=== PATIENT | male | born 1945 | race Caucasian/White ===

== ENCOUNTER → 2023-12-04 11:57 | Outpatient (REF) | payer BC, SELFPAY | LOC: HWRAD 11:57 | PROVIDERS: ATTENDING PHYSICIAN Physician Assistant Medical | DX: R29.890 Loss of height (principal); Z13.820 Encounter for screening for osteoporosis | CPT/HCPCS: 77080 ==

== ENCOUNTER → 2024-02-04 06:29 | Day surgery (SDC) | payer BC, SELFPAY | LOC: GI 06:29 | PROVIDERS: ATTENDING PHYSICIAN Internal Medicine | DX: Z12.11 Encounter for screening for malignant neoplasm of colon (principal); D12.5 Benign neoplasm of sigmoid colon; K57.30 Diverticulosis of large intestine without perforation or abscess without bleeding; K64.8 Other hemorrhoids; K64.4 Residual hemorrhoidal skin tags | CPT/HCPCS: 45385; 88305 ==

== ENCOUNTER → 2024-10-07 17:35 | Outpatient (REF) | payer BC, SELFPAY | LOC: MRI 17:35 | PROVIDERS: ATTENDING PHYSICIAN Ophthalmology; FAMILY PHYSICIAN Physician Assistant Medical | DX: H47.293 Other optic atrophy, bilateral (principal) | CPT/HCPCS: 70553; A9575 ==

== ENCOUNTER 2024-12-04 12:51 | Emergency (ER) | payer BC, SELFPAY ==
[2024-12-04 12:58] VITALS: BP 160/72
[2024-12-04 14:21] VITALS: BP 145/63
--- NOTE | 2024-12-04 14:36 | ED.GENMED ---
History of Present Illness
General
Chief Complaint: Cardiac Symptoms
Source: patient
Exam Limitations: none
Time Seen by Provider: 12/04/24 14:17
Nursing documentation reviewed up to this point in time: agreed with
History of Present Illness
History of Present Illness:
The patient is a pleasant 79-year-old man with a past medical history of bradycardia who reports that he just did not feel well yesterday morning. Patient reports that the same thing happened again, at the same time during the morning. He
describes just not feeling right, as if ' something is not working'. He reports that his breathing feels ' more noticeable' but he is not necessarily short of breath. He denies chest pain. He denies fever and headache. He denies any recent
illnesses such as nausea, vomiting and diarrhea. Patient reports he feels better at this time. Patient reports the only symptom he has been having specifically is pain in his right foot which she attributes to gout, which he reports is
significantly better since taking indomethacin both yesterday morning and this morning as well as Tylenol.
Past History
Past History
ED Past Medical History: Other (rbbb, djd of back, bradycardia)
ED Past Surgical History: Other
Social History
Tobacco: Former smoker
Alcohol: Other
Drug: None
Personal:
Living: with family
Employment: Other
Family History
Family History: Other
Review of Systems
Review of Systems
Allergies reviewed?: Yes
All Other Systems: ROS reviewed and negative except as documented in HPI and ROS
Constitutional: Reports no symptoms
EENT: Reports no symptoms
Respiratory: Reports no symptoms
Cardiac: Reports no symptoms
ABD/GI: Reports no symptoms
: Reports no symptoms
Musculoskeletal: Reports no symptoms
Skin: Reports no symptoms
Neurological: Reports no symptoms
Endocrine: Reports no symptoms
Hematologic/Lymphatic: Reports no symptoms
Psychiatric: Reports no symptoms
Phy Exam
Physical Exam
Physical Exam:
Physical Exam
General: no apparent distress, not acutely ill. Well and comfortable appearing
Neck: supple. no meningeal signs. normal psoterior pharynx
Heart: Bradycardic
Lungs: no acute respiratory distress. clear bilaterally
Abdomen: normal bowel sounds. not tender. no CVAT
Neuro: alert and oriented. no focal neurological deficits
Skin: no rash
Psychiatric: well kept. interactive and cooperative
Extremities: no edema. no calf tenderness. negative homans. good distal pulses. Right foot is not erythematous, nor is there any crepitus or obvious swelling.
Course
Orders/Labs/Results
Orders:
Orders
12/04/24 12:52
EKG [Electrocardiogram (*1)] Urgent
Reason for Study: Chest Pain
EKG- Treatment ONCE
12/04/24 14:30
Complete Blood Count/With Diff Urgent
Comprehensive Metabolic Panel Urgent
Prothrombin Time Urgent
Troponin I Urgent
12/04/24 14:48
Electrocardiogram (*1) Urgent
Reason for Study: Shortness of Breath
EKG- Treatment ONCE
Abnormal Lab Results
12/04/24
14:30
RBC 4.12 L 10^6/uL
(4.70-6.10)
Hct 38.2 L %
(39.0-52.0)
MCH 32.3 H pg
(27.0-31.0)
Lymphocytes % 16.7 L %
(20.5-51.1)
Glucose 104 H mg/dl
(70-99)
12/04/24 14:30
12/04/24 14:30
Vital Signs
Initial and Last Documented VS:
Initial Vital Signs
Temp Pulse Resp BP Pulse Ox
98.2 F 51 16 160/72 100
12/04/24 12:58 12/04/24 12:58 12/04/24 12:58 12/04/24 12:58 12/04/24 12:58
Last Documented Vital Signs
Temp Pulse Resp BP Pulse Ox
98.2 F 52 15 130/61 98
12/04/24 12:58 12/04/24 15:45 12/04/24 15:45 12/04/24 15:00 12/04/24 15:00
MDM/Problems Addressed
Differential Diagnosis Includes:
Symptomatic bradycardia, acute coronary syndrome, cardiac arrhythmia
MDM/Problems Addressed:
Patient presents with feelings of acutely not feeling well
Acute Exacerbation and/or Progression of Chronic Illness:
Patient may have acute exacerbation and worsening of his bradycardia
*Pulse Oximetry
Patient hypoxic: no
*EKG
Interpreted by ED Provider?: Yes
Interpretation: abnormal
Comparison EKG: changes noted
Rate: bradycardiac
Rhythm: sinus
[place]: normal axis
Interval: first degree heart block
QRS Pattern: right bundle branch block
Ischemia: non-specific ST changes
*Public Policy Mediator Interpretation
Rate: bradycardiac
Interpretation: normal
Rhythm: sinus and PAC's
*Critical Care Note
Total Time (30-74mins, 75-104mins- exclusive of procedures): Not Applicable
Data Reviewed
Review of Other/Old Records Reveals: Testing (Cardiac echo in 2016 showed no significant abnormalities)
Patient Management
Social determinants of health affecting care: Living situation and Strong social support
Discussion with other providers: Other (Case discussed with Dr. Isaac Cornelius who reviewed patient's monitor strip and EKG. He assured me that patient will be evaluated in the cardiology office tomorrow for possible symptomatic bradycardia and
irregular heartbeat)
Escalation/DeEscalation of care consider admission/obs:
Patient states he feels well, as if he is at his full baseline. He denies any lightheadedness, chest pain or shortness of breath. He understands that he has bradycardia and possible short pauses, can be causing his symptoms and he should return
immediately with any dizziness or episodes of passing out. Patient understands he must follow-up with cardiology tomorrow in the office
ED Attending Note
-
Portions of this chart may have been created with voice recognition software.� Occasional wrong word or��sound alike� substitutions may have occurred due to the inherent limitations of voice recognition software.
Discharge Plan
Departure
Patient Disposition: Home (Routine Discharge)
Date of Disposition: 12/04/24
Time of Disposition: 15:54
Patient with high blood pressure during this ER visit?: Yes
Condition: Good
Covid-19: Not Applicable
Discharge Problem:
Bradycardia
Instructions: Bradycardia, BLOOD PRESSURE
Prescriptions:
No Action
aspirin 81 MG tablet,delayed release (DR/EC)
81 mg PO DAILY
Referrals:
Shakir Santos MD [Active] - (See in the office tomorrow)
Kimmy Hall PA-C [Family Provider] -
Activity Restrictions/Additional Instructions:
Please return with any episodes of passing out or extreme lightheadedness. If you do not hear from Dr. Santos/cardiology office by 10 AM tomorrow, please give them a call and let them know that you must be seen for a slow heart rate and that
Isaac Cornelius (another senior auditor from Dr. Santos's office) recommended that you be seen a soon as possible
Interventions
Interventions:
*Risk Screen - Suicide Last Done: 12/04/24 14:29
*General Assessment Last Done: 12/04/24 14:29
*Neglect/Abuse Screening Last Done: 12/04/24 14:29
*ED COVID-19 Vaccine History Last Done: 12/04/24 14:29
*Nursing Disposition Last Done: 12/04/24 16:13
ED- Pulmonary Assessment Last Done: 12/04/24 14:31
ED- Cardiac Assessment Last Done: 12/04/24 14:31
Discharge Date and Time
Discharge Date/Time: 12/04/24 16:13
Print Language: SALVADOREAN
[2024-12-04 14:43] LABS: % Basophils 0.2 % (0-2); % Eosinophils 2.2 % (0-6); % Immature Granulocytes 0.2 % (0-0.5); % Lymphocytes 16.7 % (20.5-51.1); % Monocytes 7.5 % (1.7-9.3); % Neutrophils 73.2 % (42.2-75.2); Absolute Eosinophils 0.2 10^3/uL (0-0.7); Absolute Lymphocytes 1.4 10^3/uL (1.2-3.4); Absolute Monocytes 0.6 10^3/uL (0.1-0.6); Absolute Neutrophils 5.9 10^3/uL (1.4-6.5); Hematocrit 38.2 % (39.0-52.0); Hemoglobin 13.3 g/dL (13.0-18.0); Mean Corp Hgb Conc. 34.8 g/dL (33.0-37.0); Mean Corpuscular Hgb 32.3 pg (27.0-31.0); Mean Corpuscular Volume 92.7 fL (80.0-94.0); Mean Platelet Volume 9.6 fL (7.4-10.4); Nucleated Red Blood Cells % 0 % (-); Platelet Count 156 10^3/uL (130-400); Red Blood Cell Count 4.12 10^6/uL (4.70-6.10); White Blood Cell Count 8.1 10^3/uL (4.8-10.8)
[2024-12-04 14:48] LABS: INR 0.94; PT 12.9 Sec (11.4-14.6)
[2024-12-04 14:50] LABS: ALT (SGPT) 20 U/L (0-50); AST (SGOT) 27 U/L (17-59); Albumin 4.1 g/dl (3.5-5.0); Alkaline Phosphatase 65 U/L (38-126); Blood Urea Nitrogen 16 mg/dl (9-20); Calcium 9.1 mg/dl (8.4-10.2); Carbon Dioxide 28 mmol/L (22-30); Chloride 101 mmol/L (98-107); Glucose 104 mg/dl (70-99); Potassium 4.4 mmol/L (3.5-5.1); Sodium 135 mmol/L (135-145); Total Bilirubin 1.1 mg/dl (0.2-1.3); Total Protein 6.4 g/dl (6.3-8.2); eGFR > 60.00
[2024-12-04 15:00] VITALS: BP 130/61
[2024-12-04 15:01] LABS: Troponin I < 0.012 ng/ml
== END 2024-12-04 16:13 | disposition home or self-care (01) ==
LOC: EMR 12:51
PROVIDERS: EMERGENCY PHYSICIAN Emergency Medicine; FAMILY PHYSICIAN Physician Assistant Medical
DX: R00.1 Bradycardia, unspecified (principal); Z87.891 Personal history of nicotine dependence; M10.9 Gout, unspecified; Z79.899 Other long term (current) drug therapy
CPT/HCPCS: 99284; 80053; 84484; 85025; 85610; 93005

== ENCOUNTER → 2024-12-19 14:55 | Outpatient (REF) | payer BC, SELFPAY | LOC: RCS 14:55 | PROVIDERS: ATTENDING PHYSICIAN Internal Medicine Cardiovascular Disease; FAMILY PHYSICIAN Physician Assistant Medical | DX: R06.02 Shortness of breath (principal); R00.1 Bradycardia, unspecified | CPT/HCPCS: 93306 ==

== ENCOUNTER 2025-02-15 10:26 | Day surgery (SDC) | payer BC, SELFPAY ==
[2025-02-15] VITALS (19 sets, daily range): BP systolic 91–145; BP diastolic 48–124; BMI 25.6; BMI 25.5
[2025-02-15 10:55] LABS: Hematocrit 38.9 % (39.0-52.0); Hemoglobin 13.8 g/dL (13.0-18.0); Mean Corp Hgb Conc. 35.5 g/dL (33.0-37.0); Mean Corpuscular Hgb 32.5 pg (27.0-31.0); Mean Corpuscular Volume 91.7 fL (80.0-94.0); Mean Platelet Volume 9.4 fL (7.4-10.4); Platelet Count 161 10^3/uL (130-400); Red Blood Cell Count 4.24 10^6/uL (4.70-6.10); Red Cell Dist. Width 13.1 % (11.5-14.5); White Blood Cell Count 4.3 10^3/uL (4.8-10.8)
[2025-02-15 11:10] LABS: Blood Urea Nitrogen 14 mg/dl (9-20); Calcium 9.5 mg/dl (8.4-10.2); Carbon Dioxide 27 mmol/L (22-30); Chloride 104 mmol/L (98-107); Estimated Creatinine Clearance 69 ml/min; Glucose 110 mg/dl (70-99); Potassium 4.1 mmol/L (3.5-5.1); Sodium 138 mmol/L (135-145); eGFR > 60.00
--- NOTE | 2025-02-15 14:20 | ITS.CL.PACE ---
Customer Service Supervisor - Pacemaker Implant
Pacemaker Implant
Procedure Report:
Date of Procedure: 02/05/2025
Patient : 43
Procedure: Pacemaker Implantation.
Indication: symptomatic sick sinus syndrome
Implants:
Pulse Generator: Medtronic; Model# W1DR01; SN: [id number]
RA Lead: Med[employer]; Model# 4574; SN: [id number].
RV Lead: Med[employer]onic; Model# 4074; SN: [id number].
Technique: A time out was performed. The procedure site was identified. The patient was anesthetized by the anesthesia service. Preoperative sedation was administered. The patient was prepped and draped in the usual fashion. Local anesthetic was
applied to the left prepectoral subcutaneous tissue. A 3 inch incision was made 2.5 inches below the left clavicle. A subcutaneous pocket was created with blunt and sharp dissection and hemostasis controlled with Bovie cautery. The left axillary
vein was accessed within the pocket without difficulty. Hemostasis was excellent. The leads were introduced with 7 Fr hemostatic peel away introducer sheaths. The ventricular lead was placed at the right ventricular apex. The atrial lead was placed
in the right atrial appendage. 10 volt pacing did not capture the diaphragm. The leads were secured to the pectoralis muscle and fascia. The leads were appropriately attached to the device. The pocket was irrigated with antibiotic solution. The
device and leads were placed in the pocket. The incision was closed in three layers with absorbable suture. The estimated blood loss was minimal. There were no complications.
Lead Analysis:
RA lead: P: 5 mV; Threshold: 0.5 V @ 0.5 ms; Impedance: 663 ohms.
RV lead: R: 11 mV; Threshold: 0.5 V @ 0.5 ms; Impedance: 712 ohms.
Final Programming: AAIR-DDDR 60-130
Conclusion: Uncomplicated Medtronic pacemaker implant.
Recommendation: Routine post pacemaker care.
--- NOTE | 2025-02-15 15:23 | CM ---
Reviewed chart. Met with and Mrs. Cornelius to review discharge plans. He states prior to admission he resides with his spouse in a two story home with two steps to enter. He states he has a full flight of steps to get to bedroom/full bathroom. He
states he has a powder room on the first floor. He states prior to admission he was independent with ambulation and adls. He states he does not have any DME in the home. He states he has a prescription plan and uses [facility]. The discharge
plan is to return home with his spouse when medically stable.
[2025-02-15] MEDS: LIPITOR 10 MG PO (17:29)
[2025-02-15] MEDS: ANCEF 5 IV (17:29)
[2025-02-15] MEDS: XALATAN OPHTHALMIC SOLUTION 1 DROP OPHTH (18:05)
--- NOTE | 2025-02-15 18:57 | PTCARENOTE ---
~1345: Received handoff report from CCL.
~4806-5567: Pt out of CCL to room. Pt Aox4, NSR/ A paced/ AV paced 50s on tele, SBPs 110s/70s, satting high 90s on RA. Pt denies pain at this time. Post-op PPM restrictions explained to patient. L upper chest has post-op dressing which is CDI, site
soft, limb immobilizer on. EKG completed per order. Pt oriented to room and call ayoub system. All needs met at this time, call ayoub within reach.
~5097-4936: Pt went and returned from CXR. Pt OOB in chair, standby assist in room. Pt denies pain at this time, VSS. Handoff report given to nightshift RN.
[2025-02-15] MEDS: TIMOPTIC 0.5% OPHTHALMIC SOLUTION OPHTH (21:15)
--- NOTE | 2025-02-15 23:46 | PTCARENOTE ---
Assumed care of the pt @ 1900. Pt is AAOx3 sitting up in chair. SR/ A- paced on the monitor with PVC's denies cp VSS. Left chest wall pacer site dressing c/d/i left arm immobilizer on. Call ayoub within reach.
[2025-02-16 02:28] VITALS: BP 112/75
[2025-02-16] MEDS: ANCEF 5 IV (02:33)
[2025-02-16 03:22] LABS: Hemoglobin 13.3 g/dL (13.0-18.0); Mean Corpuscular Hgb 32.1 pg (27.0-31.0); Mean Corpuscular Volume 91.8 fL (80.0-94.0); Mean Platelet Volume 9.9 fL (7.4-10.4); Platelet Count 164 10^3/uL (130-400); Red Blood Cell Count 4.14 10^6/uL (4.70-6.10); Red Cell Dist. Width 13.2 % (11.5-14.5); White Blood Cell Count 7.6 10^3/uL (4.8-10.8)
[2025-02-16 03:44] LABS: Blood Urea Nitrogen 17 mg/dl (9-20); Calcium 9.3 mg/dl (8.4-10.2); Carbon Dioxide 25 mmol/L (22-30); Chloride 105 mmol/L (98-107); Estimated Creatinine Clearance 69 ml/min; Glucose 139 mg/dl (70-99); Magnesium 1.9 mg/dl (1.6-2.3); Potassium 4.2 mmol/L (3.5-5.1); Sodium 138 mmol/L (135-145); eGFR > 60.00
[2025-02-16 07:07] VITALS: BP 116/57
[2025-02-16] MEDS: TIMOPTIC 0.5% OPHTHALMIC SOLUTION 1 DROP OPHTH (08:41)
--- NOTE | 2025-02-16 09:26 | CM ---
Reviewed chart. Met with Mr. Cornelius to review discharge plans. He states he is feeling well and maybe able to go home soon. Prior to admission he resides wit his spouse in a two story home with two steps to enter. He has a full flight of steps to
get to bedroom/full bathroom. He has a powder room on the first floor. Prior to admission he was independent with ambulation and adls. He does not have any DME in the home. He has a prescription plan and uses [facility]. The discharge plan
is to return home with his spouse when medically stable.
[2025-02-16 10:56] VITALS: BP 146/70
--- NOTE | 2025-02-16 11:04 | W.PN.CARDCBS ---
Addendum entered and electronically signed by Harsh Velez MD 02/16/25 13:12:
Patient seen and examined
Agree with TAPE RECORDER MECHANIC note assessment
Agree with TAPE RECORDER MECHANIC plan
Chest x-ray with stable lead positions right atrium right ventricle
Appropriate atrial sensing pacing ventricular sensing pacing
Exam:
Alert and x 3
Nonfocal neurologically
JVP 6
Cor regular no murmur
Abdomen soft nontender positive bowel sounds
Extremity no edema
Left site without hematoma
Impression:
Symptomatic SSS
post DC PPM 02/15/25
RBBB
HLD
BPH
Pulmonary HTN
Glaucoma
colon cancer
Arthritis
Plan:
post device site stable
tele AV dual paced
CXR no PTX
He wants to have device set up on cellphone
info provided and [employer] rep will call him tomorrow to help set up
Activity restrictions reviewed
Incision check 1 week
Answered all his questions, 40min spent answering questions with TAPE RECORDER MECHANIC and I spent 15 minutes at bedside answering questions
home today
Original Note:
Today's Communication / Plan
-
stable for dc home post PPM
Impression / Plan
-
PCP: Kimmy Hall PA-C
CDY: Winston Santos MD
Impression:
Symptomatic SSS
post DC PPM 02/15/25
RBBB
HLD
BPH
Pulmonary HTN
Glaucoma
colon cancer
Arthritis
Plan:
post device site stable
tele AV dual paced
CXR no PTX
He wants to have device set up on cellphone
info provided and [employer] rep will call him tomorrow to help set up
Activity restrictions reviewed
Incision check 1 week
Answered all his questions, 40min spent answering questions
home today
Progress Note - Mailing Machine Assistant
Subjective
Date of Service: February 16, 2025
denies cp, sob
Objective
Labs:
02/16/25 02:40
02/16/25 02:40
Labs
Hgb 13.3 g/dL (13.0-18.0) 02/16/25 02:40
Hct 38.0 % (39.0-52.0) L 02/16/25 02:40
Plt Count 164 10^3/uL (130-400) 02/16/25 02:40
Sodium 138 mmol/L (135-145) 02/16/25 02:40
Potassium 4.2 mmol/L (3.5-5.1) 02/16/25 02:40
BUN 17 mg/dl (9-20) 02/16/25 02:40
Creatinine 0.8 mg/dL (0.7-1.3) 02/16/25 02:40
Glucose 139 mg/dl (70-99) H 02/16/25 02:40
Vital Signs and I&O:
Vital Signs
Temp Pulse Resp BP Pulse Ox
98.6 F 56 16 146/70 99
02/16/25 11:02 02/16/25 10:56 02/16/25 11:02 02/16/25 10:56 02/16/25 11:02
Vital Signs
Temp Pulse Resp BP Pulse Ox
98.6 F 56 16 146/70 99
02/16/25 11:02 02/16/25 10:56 02/16/25 11:02 02/16/25 10:56 02/16/25 11:02
Intake & Output
02/14/25 02/15/25 02/16/25 02/17/25
06:59 06:59 06:59 06:59
Intake Total 120 / 120 480 / 480
Output Total 300 / 300
Balance -180 / -180 480 / 480
Physical Exam
Physical Exam
NAD<AOX3
s1, S2, RRR
CTAB< non labored, no wheeze
SNTND bsx4
L CW Dressing c/d/i no HT
--- NOTE | 2025-02-16 11:36 | PTCARENOTE ---
IV and tele removed. Discharge instructions reviewed w/ pt and verbalizes understanding. Belongings collected and sent home w/ pt. Escorted via staff assist and WC to home.
--- NOTE | 2025-02-16 13:59 | W.DS.TRANS ---
DC Summary - Deck Builder
-
Discharge Instructions:
Discharge Diagnosis/Procedures Pacemaker implant
Diet Low Cholesterol
Driving Restrictions No driving for 1 week
Bathing Restrictions OK to Shower
Instructions:
Stand-Alone Forms: DC Inst - Implanted Device
Changes to Home Medications: No
Discharge Medications:
DC Medications w/original date entered in [facility]
alfuzosin 10 mg tablet,extended release 24 hr 10 mg PO QPM 02/15/25
atorvastatin 10 mg tablet 10 mg PO QPM 02/15/25
calcium 500 mg (as carbonate)-vitamin D3 3.125 mcg (125 unit) tablet 1 tab PO DAILY 02/15/25
latanoprost 0.005 % eye drops 1 drp RIGHT EYE HS 02/15/25
multivitamin 1 tab PO DAILY 02/15/25
timolol 0.5 % eye drops 1 drp RIGHT EYE BID 02/15/25
Home Medication Changes
Pending Results: No
[2025-02-16 19:24] LABS: Hepatitis C Antibody Negative (Negative)
== END 2025-02-16 11:37 | disposition home or self-care (01) ==
LOC: CATH 10:26
PROVIDERS: Nurse Practitioner Adult Health; ATTENDING PHYSICIAN Internal Medicine Cardiovascular Disease; FAMILY PHYSICIAN Physician Assistant Medical; OTHER PHYSICIAN Internal Medicine Cardiovascular Disease
DX: I49.5 Sick sinus syndrome (principal); Z79.899 Other long term (current) drug therapy; E78.5 Hyperlipidemia, unspecified; I45.10 Unspecified right bundle-branch block; N40.0 Benign prostatic hyperplasia without lower urinary tract symptoms; I27.20 Pulmonary hypertension, unspecified; H40.9 Unspecified glaucoma; Z86.0100 Personal history of colon polyps, unspecified; M19.90 Unspecified osteoarthritis, unspecified site
CPT/HCPCS: 33208; 71045; 80048; 83735; 85027; 86803; 93005; C1785; C1892; C1898; Q9967